=== PATIENT | male | born 1995 | race Caucasian/White ===

== ENCOUNTER → 2021-03-25 12:05 | Outpatient (CLI) | payer OTHER, SELFPAY | PROVIDERS: Visit Provider Nurse Practitioner | DX: Z20.822 Contact with and (suspected) exposure to COVID-19 (principal) | CPT/HCPCS: C9803; U0003; U0005 ==

== ENCOUNTER → 2021-04-01 12:43 | Outpatient (CLI) | payer OTHER, SELFPAY | PROVIDERS: Visit Provider Nurse Practitioner | DX: Z20.822 Contact with and (suspected) exposure to COVID-19 (principal) | CPT/HCPCS: C9803; U0003; U0005 ==

== ENCOUNTER → 2021-04-11 20:37 | Outpatient (CLI) | payer OTHER, SELFPAY ==
[2021-04-11 20:39] LABS: Adenovirus,PCR Not Detected (NotDetected); Bordetella Pertussis Not Detected (NotDetected); Chlamydophila Pneumoniae, PCR Not Detected (NotDetected); Coronavirus 19, PCR Not Detected (NotDetected); Coronavirus 229E Not Detected (NotDetected); Coronavirus NL63 Not Detected (NotDetected); Coronavirus OC43 Not Detected (NotDetected); Coronovirus HKU1,PCR Not Detected (NotDetected); Human Metapneumovirus Not Detected (NotDetected); Influenza A, PCR Not Detected (NotDetected); Influenza AH1, 2009 Not Detected (NotDetected); Influenza AH1, PCR Not Detected (NotDetected); Influenza AH3,PCR Not Detected (NotDetected); Influenza B, PCR Not Detected (NotDetected); Mycoplasma Pneumoniae, PCR Not Detected (NotDetected); Parainfluenza 1, PCR Not Detected (NotDetected); Parainfluenza 2, PCR Not Detected (NotDetected); Parainfluenza 3, PCR Not Detected (NotDetected); Parainfluenza 4, PCR Not Detected (NotDetected); Respiratory Syncytial Virus Not Detected (NotDetected); Rhinovirus/Enterovirus Not Detected (NotDetected)
== END ==
PROVIDERS: Visit Provider Nurse Practitioner Family
DX: Z20.822 Contact with and (suspected) exposure to COVID-19 (principal); J02.9 Acute pharyngitis, unspecified
CPT/HCPCS: 87581; 87632; 87798; C9803; U0003; U0005

== ENCOUNTER 2022-03-07 01:37 | Emergency (ER) | payer OTHER, SELFPAY ==
[2022-03-07 01:38] VITALS: BP 131/90; PULSE 78; RESP 14; TEMP 37; O2SAT 98; BMI 21.9
[2022-03-07 02:11] LABS: Basophils # 0.1 K/mm3 (0-0.2); Basophils % 0.4 % (0.1-2.0); Eosinophils # 0.1 K/mm3 (0.0-0.4); Eosinophils % 0.7 % (0.1-12.0); Hematocrit 46.9 % (42.0-52.0); Hemoglobin 15.1 g/dL (14.1-18.0); Lymphocytes # 2.1 K/mm3 (0.7-4.5); Lymphocytes % 18.2 % (10-50); Mean Corpuscular HGB Conc 32.2 g/dL (31.8-35.4); Mean Corpuscular Hemoglobin 28.1 pg (27.0-31.2); Mean Corpuscular Volume 87.5 fl (80-94); Mean Platelet Volume 8.1 fl (7.4-10.4); Monocytes # 0.9 K/mm3 (0.1-1.0); Neutrophils # 8.6 K/mm3 (1.8-7.8); Neutrophils % 72.7 % (37.0-80.0); Platelet Count 250 K/mm3 (142-424); Red Blood Count 5.36 M/mm3 (4.60-6.20); Red Cell Distribution Width 13.1 % (11.5-17.5); White Blood Count 11.8 K/mm3 (4.8-10.8)
--- NOTE | 2022-03-07 02:13 | HMH.EDGENADL ---
Discharge Plan Disposition Patient Disposition: Home, Self-Care Prescriptions Prescriptions: New cephalexin [cephalexin] 500 mg capsule 500 mg PO TID Qty: 30 0RF Referrals Follow up/Referrals: Provider,Referral, MD [Primary Care Provider] - See instructions Clinical Impressions Clinical Impression: Dental infection, Pain, dental Instructions Patient Instructions: DI for Dental Pain Discharge ED Provider: Vidal Fowler General Adult HPI General Chief complaint: PAIN Stated complaint: Left side facial swelling Time Seen by Provider: 03/07/22 02:13 Mode of Arrival: Ambulatory Source of Information: Patient and Medical Record Limitations: No Limitations Description of Symptoms (Recalled from ER Triage Doc. by RN): Pt reports 3 days of dental pain and left sided facial swelling from a rotting tooth . He has been unable to see a dentist d/t the weekend and holiday sunday and the lack of insurance. He denies any fevers N/V/D, or difficulty breathing. No History of Present Illness HPI narrative: has infected lt lower tooth with swollen jaw and assoc pain Onset (ago): day(s) Location: mouth Severity: moderate Associated symptoms: denies other symptoms Related Data Previous Rx's Medication Instructions Recorded cephalexin 500 mg capsule 500 mg PO TID #30 caps 03/07/22 Allergies Allergy/AdvReac Type Severity Reaction Status Date / Time No Known Allergies Allergy Verified 04/11/21 17:27 [facility] PFS Social History Smoking Status: Current every day smoker alcohol intake: never current occupational status: employed Travel in the last 8 weeks: None ROS Obtained: Yes All systems reviewed & no additional complaints except as documented Physical Exam General General appearance: alert Head Head exam: normocephalic Eye Eye exam: Present PERRL and EOMI ENT ENT exam: Present mucous membranes moist Expanded ENT Exam Teeth exam: Present dental caries and gingival swelling Neck Neck exam: Present trachea midline Respiratory Respiratory exam: Absent respiratory distress Cardiovascular Cardiovascular exam: Present regular rate Abdominal Exam Abdominal exam: Present soft Extremities Exam Extremities exam: Present full ROM Neurological Exam Neurological exam: Present alert, oriented X3 and CN II-XII intact Psychiatric Psychiatric exam: Present normal affect Skin Skin exam: Absent rash Medical Decision Making Medical Records Medical records reviewed: Yes I reviewed the patient's medical records. Jay Inquiry Pt receiving controlled substance: No Vital Signs: 03/07/22 01:38 Temperature 98.6 F Temperature Source Oral Pulse Rate [Right Radial] 78 Respiratory Rate 14 Blood Pressure [Right Arm] 131/90 Blood Pressure Mean [Right Arm] 103 Blood Pressure Source [Right Arm] Automatic Cuff Blood Pressure Position [Right Arm] Sitting 02 Sat by Pulse Oximetry 98 Oxygen Delivery Method Room Air Lab Data Lab results reviewed: Yes I reviewed the patient's lab results. Lab Results 03/07/22 02:04: WBC 11.8 H, RBC 5.36, Hgb 15.1, Hct 46.9, MCV 87.5, MCH 28.1, MCHC 32.2, RDW 13.1, Plt Count 250, MPV 8.1, Neut % (Auto) 72.7, Lymph % (Auto) 18.2, Crook % (Auto) 8.0, Eos % (Auto) 0.7, Baso % (Auto) 0.4, Neut # (Auto) 8.6 H, Lymph # (Auto) 2.1, Crook # (Auto) 0.9, Eos # (Auto) 0.1, Baso # (Auto) 0.1 Result diagrams: 03/07/22 02:04 Orders (Tests/Meds): ED MEDICATIONS Discontinued Medications Generic Name Dose Route Start Last Admin Trade Name Freq PRN Reason Stop Dose Admin Acetaminophen 1,000 mg 03/07/22 01:54 03/07/22 02:00 Acetaminophen 500mg Tab PO 03/07/22 01:55 1,000 mg ONCE ONE Administration Ibuprofen 600 mg 03/07/22 01:54 03/07/22 01:59 Ibuprofen 600 Mg Tablet PO 03/07/22 01:55 600 mg ONCE ONE Administration Lidocaine HCl 15 ml 03/07/22 01:53 03/07/22 01:59 Lidocaine 2% Viscous Julisa 15ml Udc PO 03/07/22 01:54 15 ml
[2022-03-07 02:15] LABS: Chloride 102 mmol/L (98-107); Potassium 4.2 mmoL/L (3.5-5.1); Sodium 142 mmol/L (136-145)
[2022-03-07 02:17] LABS: Alanine Aminotransferase 20 U/L (12-78); Aspartate Amino Transferase 43 U/L (17-59); Blood Urea Nitrogen 14 mg/dl (9-20); Creatinine Clearance Estimated 111 mL/min (50-200); Estimated Glomerular Filt Rate 91 ml/min (>60); GFR (African American) 110 ML/MIN (>60)
[2022-03-07 02:18] LABS: Albumin Level 4.7 g/dl (3.5-5.0); Albumin/Globulin Ratio 1.7 (1.1-1.8); Alkaline Phosphatase 75 U/L (38-126); Anion Gap 12.2 mEq/L (5-15); Bilirubin,Total 0.3 mg/dl (0.2-1.3); Carbon Dioxide 32 mmol/L (22.0-30.0); Globulin 2.8 g/dL (1.3-3.2); Total Protein,Serum 7.5 g/dl (6.3-8.2)
[2022-03-07 02:29] VITALS: BP 123/82; PULSE 70; RESP 14; TEMP 36.7; O2SAT 98
[2022-03-07 02:35] LABS: Procalcitonin 0.033 ng/mL (0.0-2.0)
[2022-03-07 02:36] LABS: Calcium 9.2 mg/dl (8.4-10.2); Glucose 109 mg/dl (74-100)
[2022-03-07 02:44] LABS: Erythrocyte Sedimentation Rate 1 mm/hr (0-15)
== END 2022-03-07 02:44 | disposition home or self-care (01) ==
PROVIDERS: Emergency Provider Emergency Medicine
DX: M27.2 Inflammatory conditions of jaws (principal); K08.89 Other specified disorders of teeth and supporting structures; K04.7 Periapical abscess without sinus; F17.210 Nicotine dependence, cigarettes, uncomplicated
CPT/HCPCS: 80053; 84145; 85025; 85651; 86140; 96374; 96375; 99284; J0696

== ENCOUNTER → 2022-04-18 09:52 | Outpatient (CLI) | payer OTHER, SELFPAY ==
--- NOTE | 2022-04-18 09:58 | XR_ITS ---
FINAL REPORT CLINICAL HISTORY: . scoliosis survey FINDINGS: SCOLIOSIS EVALUATION Multiple AP views of the thoracolumbar spine were obtained. There is 10 degrees of dextroscoliosis centered at T10. There is 10 degrees of levoscoliosis centered at L3. IMPRESSION: Thoracolumbar scoliosis as above. Reviewed, Interpreted and Dictated by Jeremiah Gallegos III, MD Transcribed by Lisandro Bruce Authenticated and [facility]
--- NOTE | 2022-04-18 09:58 | XR_ITS ---
FINAL REPORT CLINICAL HISTORY: cervicalgia, dorsalgia FINDINGS: Cervical spine AP and lateral views were obtained. There is no acute fracture. Alignment is normal. The disc spaces are preserved. IMPRESSION: No acute process. Thoracic spine AP and lateral views were obtained. There is no acute fracture. Alignment is normal. The disc spaces are preserved. IMPRESSION: No acute process. Lumbar spine AP and lateral views were obtained. There is no acute fracture. Alignment is normal. The disc spaces are preserved. IMPRESSION: No acute process. Reviewed, Interpreted and Dictated by Jeremiah Gallegos III, MD Transcribed by Lisandro Bruce Authenticated and [facility]
== END ==
PROVIDERS: PCP Emergency Medicine; Visit Provider Emergency Medicine
DX: M41.9 Scoliosis, unspecified (principal)
CPT/HCPCS: 72081; 72084

== ENCOUNTER 2022-05-02 10:00 | Outpatient (RCR) | payer OTHER, SELFPAY ==
--- NOTE | 2022-04-24 14:43 | HMH.PTOPEV ---
PT Outpatient Evaluation Rehab PT Outpatient Evaluation Start: 04/24/22 13:08 Freq: Status: Active Protocol: Document 04/24/22 14:28 PHOXU (Rec: 04/24/22 14:43 PHORNE [id number]) E-signed By Ishan Callejas, PT Outpatient Therapy Subjective History Subjective History This is the initial physical therapy evaluation for James Morfin who is a 27 yowm who presents with back pain x ~ 1 yr gradually worsening. He had X-rays performed which show Thoracic dextroscoliosis ( convex R) and lumbar levoscoliosis (convex L) of 10 deg ea. He c/o pain worse with work activites and difficulty sleeping. He reports R LE leg length discrepancy (measured at 14mm longer than L) and wears a heel lift. Chief Complaint Pain Symptom Type Ache,Sharp,Burning,Numbness, Tingling Symptoms Relieved By Rest/Positioning Symptoms Aggravated By Physical Activity,Lifting Prior Functional Limitations None Current Functional Limitations Lifting,Sleeping,Recreation Activity Symptom Description Constant but Variable Level of pain today (0-10) 5 Pain scale - at its worst (0-10) 10 Lumbopelvic Eval Posture Thoracic Spine Posture Standing Position Flexible Scoliosis on (R) Lumbar Spine Posture Standing Position Flexible Scoliosis on (L) Palapation tenderness bilateral thoracic spinal tenderness Yes lumbar spinal tenderness Yes paraspinal tenderness Yes buttock tenderness Yes Accessory Movement T-spine Vertebrae Accessory Movements Central P/A [place] that Elicit Symptoms T10 bilateral T11 bilateral T12 bilateral L-spine Vertebrae Accessory Movements Central P/A [place] that Elicit Symptoms L2 bilateral L3 bilateral L4 bilateral L5 bilateral S1 bilateral Range of Motion Lumbar Spine Active Flexion Range of 0-65 Motion (degrees) Lumbar Spine Active Extension Range of 0-15 Motion (degrees) Left Lumbar Spine Lateral Flexion Active 0-20 Range of Motion (degrees) Right Lumbar Spine Lateral Flexion 0-25 Active Range of Motion (degrees)
== END 2022-05-02 10:05 | disposition home or self-care (01) ==
LOC: PT 10:00
PROVIDERS: PCP Emergency Medicine; Visit Provider Emergency Medicine
DX: M41.80 Other forms of scoliosis, site unspecified (principal)
CPT/HCPCS: 97163

== ENCOUNTER → 2022-06-19 18:01 | Outpatient (CLI) | payer OTHER, SELFPAY ==
[2022-06-21 10:20] LABS: Testosterone,Total 459 ng/dL (264-916)
== END ==
PROVIDERS: Visit Provider Emergency Medicine
DX: S30.1XXA Contusion of abdominal wall, initial encounter (principal); R68.82 Decreased libido
CPT/HCPCS: 84403

== ENCOUNTER 2022-11-17 17:30 | Outpatient (RCR) | payer OTHER, SELFPAY ==
--- NOTE | 2022-10-04 12:16 | HMH.PTOPEV ---
PT Outpatient Evaluation Rehab PT Outpatient Evaluation Start: 10/04/22 11:02 Freq: Status: Active Protocol: Document 10/04/22 11:02 KATHIE (Rec: 10/04/22 12:15 KATHIE [id number]) E-signed By Juju Velasquez, PT Outpatient Therapy Subjective History Subjective History Pt is a 27 y/o male who reports chronic back pain from scoliosis. Pt reports pain recently worsened 1 year ago. Pt reports neck, right-sided thoracic, and central low back pain that is intermittent in nature. Pt denies any trauma. Pt reports he had xray at [facility] on 04/18/22 with reports showing 10 degrees of dextroscoliosis centered at T10. There is 10 degrees of levoscoliosis centered at L3. Pt reports he has intermittent n/t of the distal quadriceps bilaterally with prolonged sitting, denies paresthesia of the UE. Pt reports he was told his left leg is 14 degrees longer than his R and he currently uses a heel lift . Pt reports when he walks he feels like his left arm is lower and swings more. Pt reports he also likes to run but hasn't been lately due to back and lateral hip pain. Pt reports he is very active and goes to the gym almost everyday typically but had to decrease frequency due to pain . Pt reports he had PT at the beginning of this year consisting of stretching and traction which did help. Right-handed Occupation: [employer], involves lifting up to 80lbs Medical History: anxiety Leg length: L leg 94 cm, R leg 93 cm Chief Complaint Pain,Stiff,Paresthesia Symptom Type Sharp,Dull Symptoms Relieved By Rest/Positioning Symptoms Aggravated By Bending/Stooping,Physical
--- NOTE | 2022-10-31 17:24 | HMH.RHREAS ---
Rehab Reassessment Rehab OP Re-assessment Start: 10/31/22 17:13 Freq: Status: Active Protocol: Document 10/31/22 15:10 [email or web address] (Rec: 10/31/22 17:23 KATHIE [id number]) E-signed By Juju Velasquez PT Rehab Re-assessment Subjective Subjective Pt reports he feels 40-50% improved since starting PT. Pt continues to report intermittent thoracolumbar pain with activities such as running and walking. Pt reports his knees have also been starting to hurt him. Pt reports he was told by a chiropractor his left leg is 14 degrees shorter and he is worried it is out of place causing pain of his low back and knees when he walks/runs. Pt states he feels uncoordinated with running due to this. Pt reports pain at worst as 7/10 within the last week. Pt reports he is compliant with his HEP. Objective Objective Notes Palpation: tightness of the left lumbar paraspinals and right thoracic paraspinals, TTP of thoracolumbar SP B Scapular MMT: right lower trap 4-/5, all other 4/5 grossly B Hip MMT: 4+/5 grossly Radiographs reviewed with education on anatomy/pathology of scoliosis and PT measured leg length discrepancy of 1 cm Assessment Progress Assessment Progressing as Expected Assessment Notes Pt has attended 5 PT sessions consisting of aerobic exercise , scapular/hip/core strengthening and stretching, motor control exercises, manual therapy, education and modalities with good tolerance . Pt demonstrated slightly improved hip strength this date compared to initial evaluation but continues to demonstrate incoordination with movements. Pt would
== END 2022-11-17 17:35 | disposition home or self-care (01) ==
LOC: PT 17:30
PROVIDERS: PCP Emergency Medicine; Visit Provider Emergency Medicine
DX: M54.9 Dorsalgia, unspecified (principal)
CPT/HCPCS: 97010; 97014; 97110; 97140; 97163; 97164; 97530; G0283